=== PATIENT | female | born 1975 | race Two or more races ===

== ENCOUNTER → 2019-04-14 | Outpatient (CLI) | payer OTHER ==
[2016-04-14 06:39] VITALS: BP 128/79
[~2019-04-14] MED LIST: NITR100C62 PO; PHEN-318 PO
--- NOTE | 2019-04-14 08:35 | RAD ---
Indication:Elevated liver function tests. TECHNIQUE: Grayscale, color Doppler and spectral waveform is of the abdomen obtained. COMPARISON:None FINDINGS: Visualized pancreas within normal limits. Pancreatic tail not visualized due to overlying bowel gas. IVC is patent. No aortic aneurysm. Liver measures 15 cm in longest dimension with mildly increased echogenicity. Main portal vein is patent. No gallstones, pericholecystic fluid or gallbladder wall thickening. Right kidney measures 10.5 cm in length without hydronephrosis. Spleen measures 8.5 cm in length and is normal in size. Left kidney measures 11.3 cm in length without hydronephrosis. IMPRESSION: Mild hepatic steatosis. No cholelithiasis. Electronically signed by: Cezar Monge DO (04/14/2019 8:32 AM) [facility]
== END | disposition home or self-care (01) ==
LOC: US 09:00
PROVIDERS: ATTEND Physician Assistant Surgical
DX: K76.0 Fatty (change of) liver, not elsewhere classified (principal)
CPT/HCPCS: 76700

== ENCOUNTER 2020-05-07 01:08 | Inpatient (IN) | payer OTHER ==
[~2020-05-07] VITALS: Ht 157.5 cm; Wt 82.1 kg
--- NOTE | 2020-05-07 01:24 | PHYS DOC ---
Past Medical History Past Medical History: UTI Past Surgical History: Tubal ligation Additional Past Surgical Histo: RT HAND Smoking Status: Current Every Day Smoker Alcohol Use: None Drug Use: None General Adult EDM: Chief Complaint: NEURO SYMPTOMS/DEFICITS HPI: HPI: The history was obtained from the patient. Patient is a 45-year-old female with PMH diabetes who presents with a chief complaint of facial droop and slurred speech. Patient states 1 hour prior to arrival she had acute onset right-sided facial droop and slurred speech. She states she had fallen asleep in recliner woke up and began ambulating to the bathroom. She states while ambulating she noted some right leg heaviness that made it difficult to walk and cause her to fall to the right. She states her noted some slurred speech and right- sided facial droop as well. She states that her speech has improved since symptom onset but she still notes some weakness in her right lower extremity. Denies any falls or trauma. Denies any history of stroke. Denies any headache or vomiting. Denies any drinking tonight. Denies chest pain or shortness of breath. Denies syncope. Denies any acute vision or hearing changes. No other complaints. Review of Systems: Review of Systems: Constitutional: Denies fever or chills. [] Eyes: Denies change in visual acuity. [] HENT: Denies nasal congestion or sore throat. [] Respiratory: Denies cough or shortness of breath. [] Cardiovascular: Denies chest pain or edema. [] GI: Denies abdominal pain, nausea, vomiting, bloody stools or diarrhea. [] : Denies dysuria. [] Musculoskeletal: Denies back pain or joint pain. [] Integument: Denies rash. [] Neurologic: Positive for facial droop, slurred speech Endocrine: Denies polyuria or polydipsia. [] Lymphatic: Denies swollen glands. [] Psychiatric: Denies depression or anxiety. [] Heart Score: Risk Factors: Risk Factors: DM, Current or recent (<one month) smoker, HTN, HLP, family history of CAD, obesity. Risk Scores: Score 0 - 3: 2.5% MACE over next 6 weeks - Discharge Home Score 4 - 6: 20.3% MACE over next 6 weeks - Admit for Clinical Observation Score 7 - 10: 72.7% MACE over next 6 weeks - Early Invasive Strategies Allergies: Allergies: Allergies Coded Allergies Type Severity Reaction Last Updated Verified Penicillins Allergy Intermediate 10/24/14 Yes Physical Exam: PE: Constitutional: Well developed, well nourished, no acute distress, non-toxic appearance. [] HENT: Normocephalic, atraumatic, bilateral external ears normal, oropharynx moist, no oral exudates, nose normal. [] Eyes: PERRLA, EOMI, conjunctiva normal, no discharge. [] Neck: Normal range of motion, no tenderness, supple, no stridor. [] Cardiovascular:Heart rate regular rhythm, no murmur [] Lungs & Thorax: Bilateral breath sounds clear to auscultation [] Abdomen: soft, no tenderness, no masses, no pulsatile masses. [] Skin: Warm, dry, no erythema, no rash. [] Back: No tenderness, no CVA tenderness. [] Extremities: No tenderness, no cyanosis, no clubbing, ROM intact, no edema. [] Neurologic: Alert with intact cognitive function. No aphasia, dysarthria, or neglect. GCS 15. Pupils 3 mm briskly reactive b/l. No APD present. Cranial nerves 2-12 grossly intact; no facial asymmetry present, tongue midline, zen ulder shrugging strength intact. Strength 5/5 and symmetric throughout. Light touch sensation intact throughout. Cerebellar testing appropriate without evidence of dysdiadochokinesia. DTR's 2+ in all 4 extremities. Slight pronator drift noted to the left upper extremity. Psychologic: Affect normal, judgement normal, mood normal. [] Current Patient Data: Labs: Laboratory Tests Test 05/07/20 01:14 Glucose (Fingerstick) 198 mg/dL (70-99) H Vital Signs: Laboratory Tests Test 05/07/20 01:14 05/07/20 01:25 05/07/20 02:20 05/07/20 02:27 Glucose (Fingerstick) 198 mg/dL White Blood Count 8.7 x10^3/uL Red Blood Count 4.56 x10^6/uL Hemoglobin 14.0 g/dL Hematocrit 39.9 % Mean Corpuscular Volume 88 fL Mean Corpuscular Hemoglobin 31 pg Mean Corpuscular Hemoglobin Concent 35 g/dL Red Cell Distribution Width 13.1 % Platelet Count 361 x10^3/uL Neutrophils (%) (Auto) 54 % Lymphocytes (%) (Auto) 36 % Monocytes (%) (Auto) 8 % Eosinophils (%) (Auto) 1 % Basophils (%) (Auto) 1 % Neutrophils # (Auto) 4.7 x10^3/uL Lymphocytes # (Auto) 3.1 x10^3/uL Monocytes # (Auto) 0.7 x10^3/uL Eosinophils # (Auto) 0.1 x10^3/uL Basophils # (Auto) 0.1 x10^3/uL Sodium Level 137 mmol/L Potassium Level 3.6 mmol/L Chloride Level 103 mmol/L Carbon Dioxide Level 26 mmol/L Anion Gap 8 Blood Urea Nitrogen 12 mg/dL Creatinine 1.0 mg/dL Estimated GFR (Cockcroft-Gault) 60.0 Glucose Level 208 mg/dL Calcium Level 8.5 mg/dL Magnesium Level 2.1 mg/dL Troponin I Quantitative < 0.017 ng/mL Ethyl Alcohol Level < 10 mg/dL Urine Collection Type Unknown Urine Color Yellow Urine Clarity Clear Urine pH 5.5 Urine Specific [place] 1.025 Urine Protein Negative mg/dL Urine Glucose (UA) >=1000 mg/dL Urine Ketones (Stick) Negative mg/dL Urine Blood Negative Urine Nitrite Negative Urine Bilirubin Negative Urine Urobilinogen Dipstick 1.0 mg/dL Urine Leukocyte Esterase Negative Urine RBC Occ /HPF Urine WBC 1-4 /HPF Urine Squamous Epithelial Cells Mod /LPF Urine Bacteria Many /HPF Urine Mucus Mod /LPF Urine Opiates Screen Neg Urine Methadone Screen Neg Urine Barbiturates Neg Urine Phencyclidine Screen Neg Urine Amphetamine/Methamphetamine Neg Urine Benzodiazepines Screen Neg Urine Cocaine Screen Neg Urine Cannabinoids Screen Neg Urine Ethyl Alcohol Neg Bedside Urine HCG, Qualitative Hcg negative Current Medications Medications (Trade) Dose Ordered Sig/Villa Route PRN Reason Start Time Stop Time Status Last Admin Dose Admin Aspirin (Aspirin Chewable) 324 mg 1X ONCE PO 05/07/20 02:15 05/07/20 02:16 DC 05/07/20 02:13 EKG: EKG: EKG consistent with normal sinus rhythm. Ventricular rate of 74 bpm. Left axis noted. Low voltage QRS complex noted in the inferior leads and lateral precordial leads. No acute ischemic changes noted. [] Radiology/Procedures: Radiology/Procedures: [][facility] [address] [place] [address] IMAGING REPORT Signed PATIENT: ARVIND ENGLAND ACCOUNT: [id number] : 1975 LOCATION: ER AGE: 45 SEX: F EXAM STATUS: REG ER ORD. PHYSICIAN: JORDAN MCFARLANE DO REASON: right facial droop, LUE drift PROCEDURE: CT CODE STROKE HEAD WO PQRS Compliance Statement: One or more of the following individualized dose reduction techniques were utilized for this examination: 1. Automated exposure control 2. Adjustment of the mA and/or kV according to patient size 3. Use of iterative reconstruction technique CT HEAD WITHOUT CONTRAST History: Reason: right facial droop, LUE drift Comparison: None. Procedure: Axial images are obtained of the head from the skull base through the vertex without IV contrast. Findings: The ventricles and sulci are normal for the patient's age. No mass-effect, midline shift, hemorrhage, extra-axial fluid collection, or obvious acute infarction is identified. Basilar cisterns are patent. Bone windows demonstrate no acute calvarial abnormality. The visualized paranasal sinuses are clear. Mastoid air cells are well aerated. IMPRESSION: No acute intracranial abnormality. FOR INTERNAL CODING PURPOSES Critical result: Findings discussed with JORDAN MCFARLANE at 05/07/2020 1:31 AM. RESULT CODE: (C) Electronically signed by: Renzo Kaminski MD (05/07/2020 1:31 AM) [facility] DICTATED and SIGNED BY: RENZO KAMINSKI MD DATE: 05/07/20 013 Course & Med Decision Making: Course & Med Decision Making Pertinent Labs and Imaging studies reviewed. (See chart for details) [] Patient is a 45-year-old female who presents with a chief complaint of slurred speech and right-sided facial droop. Upon arrival patient did not have any appreciable facial asymmetry or changes in her voice. She did have very slight left upper extremity drift on examination otherwise normal neuro exam. Stroke alert was called given symptoms started 1 hour prior to arrival. CT head negative. Patient's initial NIH 1. Not a candidate for TPA in my opinion given her low NIH score. She is essentially asymptomatic. Basic labs were obtained and were grossly unremarkable. EKG unremarkable. Given the patient's reported neurologic symptoms at home I do feel she would benefit from hospit alization and further work-up. Patient is agreeable to this. Aspirin given in the ED. Dragon Disclaimer: Dragon Disclaimer: This electronic medical record was generated, in whole or in part, using a voice recognition dictation system. Departure Departure Impression: Primary Impression: Facial droop Additional Impressions: Slurred speech Diabetes Qualified Codes: E13.69 - Other specified diabetes mellitus with other specified complication Disposition: ADMITTED INPATIENT Condition: STABLE Referrals: MUSTAPHA CARDENAS MD (PCP) Justicifation of Admission Dx: Justifications for Admission: Justification of Admission Dx: Yes Stroke - Ischemic: Stroke-Ischemic NIHSS Stroke Scale NIH Stroke Scale: NIH Stroke Scale Response (Comments) Value Level of Consciousness: 0 Alert/Responsive 0 LOC Questions: 0 Answers both correctly 0 LOC Commands: 0 Performs both tasks 0 Best Gaze: 0 Normal 0 Visual: 0 No visual loss 0 Facial Palsy: 0 Normal, symmetrical 0 Motor - Left Arm 1 Drifts, but can hold 1 Motor - Right Arm 0 No drift 0 Motor - Left Leg 0 No drift 0 Motor: Right Leg 0 No drift 0 Limb Ataxia: 0 Absent 0 Sensory: 0 No loss 0 Best Language: 0 Normal 0 Dysathria: 0 Normal 0 Extinction and Inattention: 0 Normal 0 Total 1 JORDAN MCFARLANE DO May 07, 2020 01:24
--- NOTE | 2020-05-07 01:34 | RAD ---
RS Compliance Statement: One or more of the following individualized dose reduction techniques were utilized for this examination: 1. Automated exposure control 2. Adjustment of the mA and/or kV according to patient size 3. Use of iterative reconstruction technique CT HEAD WITHOUT CONTRAST History: Reason: right facial droop, LUE drift Comparison: None. Procedure: Axial images are obtained of the head from the skull base through the vertex without IV contrast. Findings: The ventricles and sulci are normal for the patient's age. No mass-effect, midline shift, hemorrhage, extra-axial fluid collection, or obvious acute infarction is identified. Basilar cisterns are patent. Bone windows demonstrate no acute calvarial abnormality. The visualized paranasal sinuses are clear. Mastoid air cells are well aerated. IMPRESSION: No acute intracranial abnormality. FOR INTERNAL CODING PURPOSES Critical result: Findings discussed with JORDAN MCFARLANE at 05/07/2020 1:31 AM. RESULT CODE: (C) Electronically signed by: Renzo Kaminski MD (05/07/2020 1:31 AM) [facility]
[2020-05-07 01:41] LABS: BASO # 0.1 x10^3/uL (0.0-0.2); BASO % 1 % (0-3); EOS # 0.1 x10^3/uL (0.0-0.7); EOS % 1 % (0-3); HEMATOCRIT 39.9 % (36.0-47.0); LYMPH # 3.1 x10^3/uL (1.0-4.8); LYMPH % 36 % (24-48); MEAN CORPUSCULAR HEMOGLOBIN 31 pg (25-35); MEAN CORPUSCULAR HGB CONC 35 g/dL (31-37); MEAN CORPUSCULAR VOLUME 88 fL (79-100); MONO # 0.7 x10^3/uL (0.0-1.1); MONO % 8 % (0-9); NEUT # 4.7 x10^3/uL (1.8-7.7); NEUT % 54 % (31-73); PLATELET COUNT 361 x10^3/uL (140-400); RED BLOOD COUNT 4.56 x10^6/uL (3.50-5.40); RED CELL DISTRIBUTION WIDTH 13.1 % (11.5-14.5); WHITE BLOOD COUNT 8.7 x10^3/uL (4.0-11.0)
[2020-05-07 01:50] LABS: CALCIUM 8.5 mg/dL (8.5-10.1); POTASSIUM 3.6 mmol/L (3.5-5.1)
[2020-05-07 01:51] LABS: MAGNESIUM 2.1 mg/dL (1.8-2.4)
--- NOTE | 2020-05-07 01:55 | RAD ---
CHEST AP ONLY Clinical Indication: weakness Comparison: None. Findings: The cardiomediastinal silhouette is normal. Lungs are clear. There is no pneumothorax. No pleural effusion is appreciated. No acute bone abnormality. IMPRESSION: No acute cardiopulmonary process. Electronically signed by: Renzo Kaminski MD (05/07/2020 1:52 AM) [facility]
[2020-05-07] MEDS ORDERED: ASPIRIN CHEWABLE 81 MG TABLET. PO ONE (02:15)
[2020-05-07 02:31] LABS: BILIRUBIN,URINE NEGATIVE (NEG); CLARITY,URINE CLEAR; COLOR,URINE YELLOW; NITRITE,URINE NEGATIVE (NEG); PH,URINE 5.5 (<5.0-8.0); PROTEIN,URINE NEGATIVE (NEG-TRACE)
[2020-05-07 02:37] LABS: BARBITURATES NEG (NEG); BENZODIAZEPINES NEG (NEG); CANNABINOIDS NEG (NEG); COCAINE NEG (NEG); METHADONE NEG (NEG); OPIATES NEG (NEG); PHENCYCLIDINE NEG (NEG)
[2020-05-07 02:39] LABS: AMPHETAMINE/METHAMPHETAMINE NEG (NEG)
[2020-05-07 02:40] LABS: BACTERIA,URINE MANY /HPF (0-FEW); RBC,URINE OCC /HPF (0-2); SQUAMOUS EPITHELIAL CELL,UR MOD /LPF
[2020-05-07 04:16] VITALS: BP 119/60
--- NOTE | 2020-05-07 04:16 | NUR ---
Pt. arrived around 0400 from ED via bed w/ R-facial droop to r/o TIA vs. CVA. She is A/O x4 and will make her needs known. NIH score was 1 w/ ED nurse.
[2020-05-07] MEDS ORDERED: ALPR0.5T PO (04:35)
[2020-05-07] MEDS ORDERED: SEMA0.25 SQ (04:35)
[2020-05-07] MEDS ORDERED: DULO60CA6 PO (04:35)
[2020-05-07] MEDS ORDERED: INSU100I32 SQ (04:35)
--- NOTE | 2020-05-07 07:06 | NUR ---
Just notified answering service about consult
--- NOTE | 2020-05-07 07:27 | EKG ---
[facility] [address] [place] [address] Test Date: 2020-05-07 Test Time: 01:36:54 Pat Name: ARVIND ENGLAND Department: Room: Gender: F Claim Examiner: : 1975 Requested By: JORDAN MCFARLANE Order Number: [id number] Reading MD: Measurements Intervals [place] Rate: 74 P: 31 WI: 158 QRS: -7 QRSD: 70 T: 54 QT: 374 QTc: 416 Interpretive Statements SINUS RHYTHM LEFTWARD AXIS OTHERWISE NORMAL ECG RI6.02 No previous ECG available for comparison
[2020-05-07 07:30] VITALS: BP 108/60
--- NOTE | 2020-05-07 08:40 | PDOC1 ---
History and Physical Date of Admission Date of Admission DATE: 05/07/20 TIME: 08:40 Identification/Chief Complaint Chief Complaint SEEN IN ER WITH TIA, CVA SYMPTOMS 45-year-old female with PMH diabetes who presents with a chief complaint of facial droop and slurred speech. Patient states 1 hour prior to arrival she had acute onset right-sided facial droop and slurred speech. She states she had fallen asleep in recliner woke up and began ambulating to the bathroom. while ambulating she noted some right leg heaviness that made it difficult to walk and cause her to fall to the right. She states her noted some slurred speech and right-sided facial droop as well. speech has improved since symptom onset but she still notes some weakness in her right lower extremity. // Denies any history of stroke. Denies any headache or vomiting. Denies any drinking tonight. Denies chest pain or shortness of breath. Denies syncope. Denies any acute vision or hearing changes. Past Medical History Psych: No pertinent hx Musculoskeletal: Weakness Renal/: No pertinent hx Endocrine: Diabetes Family History Family History: Hypertension Social History Smoke: <1 pack per day ALCOHOL: occassional Drugs: None Current Problem List Problem List Problems Medical Problems: (1) Diabetes Status: Acute (2) Facial droop Status: Acute (3) Slurred speech Status: Acute Current Medications Current Medications Current Medications Aspirin (Aspirin Chewable) 324 mg 1X ONCE PO Last administered on 05/07/20at 02:13; Start 05/07/20 at 02:15; Stop 05/07/20 at 02:16; Status DC Active Scripts Active Reported Xanax (Alprazolam) 0.5 Mg Tablet 1 Tab PO HS Cymbalta (Duloxetine Hcl) 60 Mg Capsule.dr 1 Cap PO DAILY Ozempic (Semaglutide) 0.25 Mg/0.2 Ml Pen.injctr 0.25 Mg SQ WEEKLY Basaglar Kwikpen U-100 (Insulin Glargine,Hum.rec.anlog) 100 Unit/1 Ml Insuln.pen 30 Unit SQ HS Allergies Allergies: Coded Allergies: Penicillins (Verified Allergy, Intermediate, 10/24/14) ROS Review of System Constitutional: Denies fever or chills. [] Eyes: Denies change in visual acuity. [] HENT: Denies nasal congestion or sore throat. [] Respiratory: Denies cough or shortness of breath. [] Cardiovascular: Denies chest pain or edema. [] GI: Denies abdominal pain, nausea, vomiting, bloody stools or diarrhea. [] : Denies dysuria. [] Musculoskeletal: Denies back pain or joint pain. [] Integument: Denies rash. [] Neurologic: Positive for facial droop, slurred speech Endocrine: Denies polyuria or polydipsia. [] Lymphatic: Denies swollen glands. [] Psychiatric: Denies depression or anxiety. [] 14 PT ros otherwise neg General: No: Chills, Night Sweats, Fatigue, Malaise, Appetite, Other PSYCHOLOGICAL ROS: No: Anxiety, Behavioral Disorder, Concentration difficultie, Decreased libido, Depression, Disorientation, Hallucinations, Hostility, Irritablity, Memory difficulties, Mood Swings, Obsessive thoughts, Physical abuse, Sexual abuse, Sleep disturbances, Suicidal ideation, Other Eyes: No Blurry vision, No Decreased vision, No Double vision, No Dry eyes, No Excessive tearing, No Eye Pain, No Itchy Eyes, No Loss of vision, No Photophobia, No Scotomata, No Uses contacts, No Uses glasses, No Other Respiratory: No: Cough, Hemoptysis, Orthopnea, Pleuritic Pain, Shortness of breath, SOB with excertion, Sputum Changes, Stridor, Tachypnea, Wheezing, Other Cardiovascular: No Chest Pain, No Palpitations, No Orthopnea, No Paroxysmal Noc . Dyspnea, No Edema, No Lt Headedness, No Other Gastrointestinal: No Nausea, No Vomiting, No Abdominal Pain, No Diarrhea, No Constipation, No Melena, No Hematochezia, No Other Musculoskeletal: Yes Gait Disturbance Neurological: Yes Dizziness, Yes Gait Disturbance Skin: No Dry Skin, No Eczema, No Hair Changes, No Lumps, No Mole Changes, No Mottling, No Nail Changes, No Pruritus, No Rash, No Skin Lesion Changes, No Other, No Acne Physical Exam Physical Exam Constitutional: Well developed, well nourished, no acute distress, non-toxic appearance. [] HENT: Normocephalic, atraumatic, bilateral external ears normal, oropharynx moist, no oral exudates, nose normal. [] Eyes: PERRLA, EOMI, conjunctiva normal, no discharge. [] Neck: Normal range of motion, no tenderness, supple, no stridor. [] Cardiovascular:Heart rate regular rhythm, no murmur [] Lungs & Thorax: Bilateral breath sounds clear to auscultation [] Abdomen: soft, no tenderness, no masses, no pulsatile masses. [] Skin: Warm, dry, no erythema, no rash. [] Back: No tenderness, no CVA tenderness. [] Extremities: No tenderness, no cyanosis, no clubbing, ROM intact, no edema. [] Neurologic: Alert with intact cognitive function. No aphasia, dysarthria, or neglect. GCS 15. Pupils 3 mm briskly reactive b/l. No APD present. Cranial nerves 2-12 grossly intact; no facial asymmetry present, tongue midline, shoulder shrugging strength intact. Strength 5/5 and symmetric throughout. Light touch sensation intact throughout. Cerebellar testing appropriate without evidence of dysdiadochokinesia. DTR's 2+ in all 4 extremities. no pronator drift noted to the left upper extremity. Psychologic: Affect normal, judgement normal, mood normal. [] General: Alert, Oriented X3, Cooperative HEENT: Atraumatic, PERRLA, EOMI, Mucous membr. moist/pink Lungs: Clear to auscultation, Normal air movement Heart: S1S2, RRR, no thrills Breasts: Not examined Abdomen: Normal bowel sounds, Soft, No tenderness, No hepatosplenomegaly Rectal Exam: not examined PELVIC: Examination not indicated Extremities: No cyanosis, No edema, Normal pulses Skin: No significant lesion Neuro: Normal speech, Strength at 5/5 X4 ext, Sensation intact, Cranial nerves 3-12 NL Psych/Mental Status: Mental status NL, Mood NL Vitals Vitals Vital Signs Date Time Temp Pulse Resp B/P (MAP) Pulse Ox O2 Delivery O2 Flow Rate FiO2 05/07/20 05:20 Room Air 05/07/20 04:16 98.4 69 17 119/60 (79) 99 98.4 Labs Labs Laboratory Tests Test 05/07/20 01:14 05/07/20 01:25 05/07/20 02:20 05/07/20 02:27 Glucose (Fingerstick) 198 mg/dL (70-99) White Blood Count 8.7 x10^3/uL (4.0-11.0) Red Blood Count 4.56 x10^6/uL (3.50-5.40) Hemoglobin 14.0 g/dL (12.0-15.5) Hematocrit 39.9 % (36.0-47.0) Mean Corpuscular Volume 88 fL (79-100) Mean Corpuscular Hemoglobin 31 pg (25-35) Mean Corpuscular Hemoglobin Concent 35 g/dL (31-37) Red Cell Distribution Width 13.1 % (11.5-14.5) Platelet Count 361 x10^3/uL (140-400) Neutrophils (%) (Auto) 54 % (31-73) Lymphocytes (%) (Auto) 36 % (24-48) Monocytes (%) (Auto) 8 % (0-9) Eosinophils (%) (Auto) 1 % (0-3) Basophils (%) (Auto) 1 % (0-3) Neutrophils # (Auto) 4.7 x10^3/uL (1.8-7.7) Lymphocytes # (Auto) 3.1 x10^3/uL (1.0-4.8) Monocytes # (Auto) 0.7 x10^3/uL (0.0-1.1) Eosinophils # (Auto) 0.1 x10^3/uL (0.0-0.7) Basophils # (Auto) 0.1 x10^3/uL (0.0-0.2) Sodium Level 137 mmol/L (136-145) Potassium Level 3.6 mmol/L (3.5-5.1) Chloride Level 103 mmol/L (98-107) Carbon Dioxide Level 26 mmol/L (21-32) Anion Gap 8 (6-14) Blood Urea Nitrogen 12 mg/dL (7-20) Creatinine 1.0 mg/dL (0.6-1.0) Estimated GFR (Cockcroft-Gault) 60.0 Glucose Level 208 mg/dL (70-99) Calcium Level 8.5 mg/dL (8.5-10.1) Magnesium Level 2.1 mg/dL (1.8-2.4) Troponin I Quantitative < 0.017 ng/mL (0.000-0.055) Ethyl Alcohol Level < 10 mg/dL (0-10) Urine Collection Type Unknown Urine Color Yellow Urine Clarity Clear Urine pH 5.5 (<5.0-8.0) Urine Specific [place] 1.025 (1.000-1.030) Urine Protein Negative mg/dL (NEG-TRACE) Urine Glucose (UA) >=1000 mg/dL (NEG) Urine Ketones (Stick) Negative mg/dL (NEG) Urine Blood Negative (NEG) Urine Nitrite Negative (NEG) Urine Bilirubin Negative (NEG) Urine Urobilinogen Dipstick 1.0 mg/dL (0.2 mg/dL) Urine Leukocyte Esterase Negative (NEG) Urine RBC Occ /HPF (0-2) Urine WBC 1-4 /HPF (0-4) Urine Squamous Epithelial Cells Mod /LPF Urine Bacteria Many /HPF (0-FEW) Urine Mucus Mod /LPF Urine Opiates Screen Neg (NEG) Urine Methadone Screen Neg (NEG) Urine Barbiturates Neg (NEG) Urine Phencyclidine Screen Neg (NEG) Urine Amphetamine/Methamphetamine Neg (NEG) Urine Benzodiazepines Screen Neg (NEG) Urine Cocaine Screen Neg (NEG) Urine Cannabinoids Screen Neg (NEG) Urine Ethyl Alcohol Neg (NEG) Bedside Urine HCG, Qualitative Hcg negative (Negative) Test 05/07/20 08:10 Glucose (Fingerstick) 169 mg/dL (70-99) Laboratory Tests Test 05/07/20 01:14 05/07/20 01:25 05/07/20 02:20 05/07/20 02:27 Glucose (Fingerstick) 198 mg/dL (70-99) White Blood Count 8.7 x10^3/uL (4.0-11.0) Red Blood Count 4.56 x10^6/uL (3.50-5.40) Hemoglobin 14.0 g/dL (12.0-15.5) Hematocrit 39.9 % (36.0-47.0) Mean Corpuscular Volume 88 fL (79-100) Mean Corpuscular Hemoglobin 31 pg (25-35) Mean Corpuscular Hemoglobin Concent 35 g/dL (31-37) Red Cell Distribution Width 13.1 % (11.5-14.5) Platelet Count 361 x10^3/uL (140-400) Neutrophils (%) (Auto) 54 % (31-73) Lymphocytes (%) (Auto) 36 % (24-48) Monocytes (%) (Auto) 8 % (0-9) Eosinophils (%) (Auto) 1 % (0-3) Basophils (%) (Auto) 1 % (0-3) Neutrophils # (Auto) 4.7 x10^3/uL (1.8-7.7) Lymphocytes # (Auto) 3.1 x10^3/uL (1.0-4.8) Monocytes # (Auto) 0.7 x10^3/uL (0.0-1.1) Eosinophils # (Auto) 0.1 x10^3/uL (0.0-0.7) Basophils # (Auto) 0.1 x10^3/uL (0.0-0.2) Sodium Level 137 mmol/L (136-145) Potassium Level 3.6 mmol/L (3.5-5.1) Chloride Level 103 mmol/L (98-107) Carbon Dioxide Level 26 mmol/L (21-32) Anion Gap 8 (6-14) Blood Urea Nitrogen 12 mg/dL (7-20) Creatinine 1.0 mg/dL (0.6-1.0) Estimated GFR (Cockcroft-Gault) 60.0 Glucose Level 208 mg/dL (70-99) Calcium Level 8.5 mg/dL (8.5-10.1) Magnesium Level 2.1 mg/dL (1.8-2.4) Troponin I Quantitative < 0.017 ng/mL (0.000-0.055) Ethyl Alcohol Level < 10 mg/dL (0-10) Urine Collection Type Unknown Urine Color Yellow Urine Clarity Clear Urine pH 5.5 (<5.0-8.0) Urine Specific [place] 1.025 (1.000-1.030) Urine Protein Negative mg/dL (NEG-TRACE) Urine Glucose (UA) >=1000 mg/dL (NEG) Urine Ketones (Stick) Negative mg/dL (NEG) Urine Blood Negative (NEG) Urine Nitrite Negative (NEG) Urine Bilirubin Negative (NEG) Urine Urobilinogen Dipstick 1.0 mg/dL (0.2 mg/dL) Urine Leukocyte Esterase Negative (NEG) Urine RBC Occ /HPF (0-2) Urine WBC 1-4 /HPF (0-4) Urine Squamous Epithelial Cells Mod /LPF Urine Bacteria Many /HPF (0-FEW) Urine Mucus Mod /LPF Urine Opiates Screen Neg (NEG) Urine Methadone Screen Neg (NEG) Urine Barbiturates Neg (NEG) Urine Phencyclidine Screen Neg (NEG) Urine Amphetamine/Methamphetamine Neg (NEG) Urine Benzodiazepines Screen Neg (NEG) Urine Cocaine Screen Neg (NEG) Urine Cannabinoids Screen Neg (NEG) Urine Ethyl Alcohol Neg (NEG) Bedside Urine HCG, Qualitative Hcg negative (Negative) Test 05/07/20 08:10 Glucose (Fingerstick) 169 mg/dL (70-99) VTE Prophylaxis Ordered VTE Prophylaxis Devices: No VTE Pharmacological Prophylaxi: Yes Assessment/Plan Assessment/Plan Impression: Facial droop, resolved , POSSIBLE TIA right leg paresthesia, resolved Slurred speech, RESOLVED Diabetes MORBID OBESITY TOBACCO ABUSE DISORDER plan ADMITTED NEUROLOGY CONSULT NEURO CHECKS Q 4 HRS MRI HEAD TELE ACCUCHECKS pt/ot/ st DVT PROPHYLAXIS HOME MEDS NEED FOR SMOKING CESSATION, reinforced D/W DR GLYNN Justifications for Admission Other Justification JOE FRENCH MD May 07, 2020 08:40
[2020-05-07] MEDS ORDERED: ASPIRIN RECTAL 300 MG SUPP. PR PRN (09:00)
[2020-05-07] MEDS ORDERED: ACETAMINOPHEN 325 MG TABLET. PO PRN ×2 (09:00→10:30)
[2020-05-07] MEDS ORDERED: ACETAMINOPHEN 650 MG SUPP.RECT. PR PRN (09:00)
[2020-05-07] MEDS ORDERED: IOHEXOL 300 MG/ML 100ML VIAL. IV ONE (09:15)
[2020-05-07] MEDS ORDERED: IV NORMAL SALINE 1000ML BAG 1,000 ML IV SCH (10:28)
[2020-05-07] MEDS ORDERED: 0.9 % SODIUM CHLORIDE 10 ML DISP.SYRIN. IV PRN (10:30)
[2020-05-07] MEDS ORDERED: guaiFENesin ORAL 200 MG/10 ML LIQUID. PO PRN (10:30)
[2020-05-07] MEDS ORDERED: LORazepam 0.5 MG TABLET PO PRN (10:30)
[2020-05-07] MEDS ORDERED: MAG HYDROX/ALUMINUM HYD/SIMETH 30 ML ORAL.SUSP PO PRN (10:30)
[2020-05-07] MEDS ORDERED: SODIUM PHOSPHATES 19/7GM 133 ML ENEMA. PR PRN (10:30)
[2020-05-07] MEDS ORDERED: DOCUSATE SODIUM 100 MG CAPSULE. PO PRN (10:30)
[2020-05-07] MEDS ORDERED: cloNIDine HCL 0.1 MG TABLET PO PRN (10:30)
--- NOTE | 2020-05-07 10:43 | PDOC2 ---
NEUROLOGY CONSULT Date of Service DOS: DATE: 05/07/20 TIME: 10:35 Reason for Consult Reason for Consult: Stroke symptoms Referring Physician Referring Physician: Dr. Huerta PCP: Dr. Martin Source Source: Caregiver (), Chart review, Patient History of Present Illness History of Present Illness The patient is a 45-year-old right-handed female who is watching the [employer] game last night. She fell asleep. When she woke up, she noticed that her right face was drooping and she had some dysarthria. She noticed some clumsiness of the right leg when she tried to go to the restroom. In the emergency department the patient had an NIH score of one and it was felt she was not a candidate for alteplase. She has no history of stroke, seizure, head injury, or migraines. There was no pain involved last night. She feels fine this morning. She has been told that her cholesterol is elevated. I accessed her outpatient chart with her permission, I see that hemoglobin A-1 C was 7.6 on 03/26/20, on 04/26/19, total cholesterol was 199, LDL 120, triglycerides 190. Past Medical History CENTRAL NERVOUS SYSTEM: Other ( carpal tunnel, restless legs) Hepatobiliary: Other ( fatty liver) Psych: Anxiety, Depression, Other ( insomnia) Endocrine: Diabetes Past Surgical History Past Surgical History: Tubal Ligation, Other ( right carpal tunnel release) Family History Family History: DM, Hypertension Social History Social History , 5 cigarettes a day, rare alcohol, airline pilot/first officer Current Medications Current Medications Current Medications Aspirin (Aspirin Chewable) 324 mg 1X ONCE PO Last administered on 05/07/20at 02:13; Start 05/07/20 at 02:15; Stop 05/07/20 at 02:16; Status DC Acetaminophen (Tylenol) 650 mg PRN Q6HRS PRN PO TEMP > 100.4F; Start 05/07/20 at 09:00 Acetaminophen (Tylenol Supp) 650 mg PRN Q4HRS PRN MS TEMP > 100.4F; Start 05/07/20 at 09:00 Aspirin (Ecotrin) 325 mg DAILYWBKFT PO ; Start 05/08/20 at 08:00 Aspirin (Aspirin Rectal Supp) 300 mg PRN DAILY PRN MS IF UNABLE TO TAKE PO; Start 05/07/20 at 09:00 Iohexol (Omnipaque 300 Mg/ml) 75 ml 1X ONCE IV ; Start 05/07/20 at 09:15; Stop 05/07/20 at 09:18; Status DC Sodium Chloride (Normal Saline Flush) 3 ml QSHIFT PRN IV AFTER MEDS AND BLOOD DRAWS; Start 05/07/20 at 10:30; Status UNV Sodium Chloride 1,000 ml @ 100 mls/hr Q10H IV ; Start 05/07/20 at 10:28; Status UNV Acetaminophen (Tylenol) 650 mg PRN Q4HRS PRN PO TEMP OVER 100.4F OR MILD PAIN; Start 05/07/20 at 10:30; Status UNV Al Hydroxide/Mg Hydroxide (Mylanta Plus Xs) 30 ml PRN DAILY PRN PO HEARTBURN / GAS; Start 05/07/20 at 10:30; Status UNV Clonidine HCl (Catapres) 0.1 mg PRN Q6HRS PRN PO SBP>160 OR DBP>90; Start 05/07/20 at 10:30; Status UNV Sodium Monofluorophosphate (Fleet Adult) 133 ml PRN DAILY PRN MS CONSTIPATION; Start 05/07/20 at 10:30; Status UNV Docusate Sodium (Colace) 100 mg PRN BID PRN PO HARD STOOLS; Start 05/07/20 at 10:30; Status UNV Albuterol/ Ipratropium (Duoneb) 3 ml Q4H NEB ; Start 05/07/20 at 10:30; Status UNV Guaifenesin (Robitussin) 200 mg PRN Q4HRS PRN PO COUGH; Start 05/07/20 at 10:30; Status UNV Lorazepam (Ativan) 0.5 mg PRN Q4HRS PRN PO ANXIETY / AGITATION; Start 05/07/20 at 10:30; Status UNV Enoxaparin Sodium (Lovenox 40mg Syringe) 40 mg Q24H SQ ; Start 05/07/20 at 10:30; Status UNV Alprazolam (Xanax) 0.5 mg HS PO ; Start 05/07/20 at 21:00; Status UNV Non-Formulary Medication (Duloxetine Hcl (Cymbalta)) 1 cap DAILY PO ; Start 05/08/20 at 09:00; Status UNV Non-Formulary Medication (Insulin Glargine,Hum.rec.anlog (Basaglar Kwikpen U- 100)) 30 unit HS SQ ; Start 05/07/20 at 21:00; Status UNV Non-Formulary Medication (Semaglutide (Ozempic)) 0.25 mg WEEKLY SQ ; Start 05/14/20 at 09:00; Status UNV Active Scripts Active Reported Xanax (Alprazolam) 0.5 Mg Tablet 1 Tab PO HS Cymbalta (Duloxetine Hcl) 60 Mg Capsule.dr 1 Cap PO DAILY Ozempic (Semaglutide) 0.25 Mg/0.2 Ml Pen.injctr 0.25 Mg SQ WEEKLY Basaglar Kwikpen U-100 (Insulin Glargine,Hum.rec.anlog) 100 Unit/1 Ml Insuln.pen 30 Unit SQ HS Allergies Allergies: Coded Allergies: Penicillins (Verified Allergy, Intermediate, 10/24/14) ROS Review of System Negative for fever, chills, weight loss, shortness of breath, chest pain, ind igestion, hematochezia, melena, and dysuria. Full 14-point review of systems is negative. Physical Exam Physical Examination General: Well-developed, well-nourished white female in no acute distress HEENT: Normocephalic andatraumatic. Temporal arteriespulsatile and nontender. Neck: Supple without bruit, no meningismus Musculoskeletal: Stability:see neurologic. Gait exam:see neurologic. Tone:see neurologic.Strength:see neurologic. Neurological: Mental Status:intact, orientation, memory, attention span/concentration, language, fund of knowledge normal. Cranial Nerves:Pupils equal and reactive to light, extraocular movements areintact, visual vick are full to confrontation. Facial sensation is normal. There is no facial asymmetry. Vestibulo-ocular reflex is intact. Palate elevates and tongue protrudes in midline. All other cranial related problems are negative except as mentioned before.Reflexes:2+ and symmetric with flexor plantar responses. Motor:5/5 strength with normal tone and bulk. Coordination:Finger-nose finger and fnrl-vn-sgat testing are normal. Rapid alternating movements and fine finger movements are intact. Gait:Normal, including tandem. Sensory:Normal pinprick, vibration, light touch, proprioception. Vitals VITALS Vital Signs Date Time Temp Pulse Resp B/P (MAP) Pulse Ox O2 Delivery O2 Flow Rate FiO2 05/07/20 07:50 Room Air 05/07/20 07:30 97.9 69 16 108/60 (76) 99 97.9 Labs Labs Laboratory Tests Test 05/07/20 01:14 05/07/20 01:25 05/07/20 02:20 05/07/20 02:27 Glucose (Fingerstick) 198 mg/dL (70-99) White Blood Count 8.7 x10^3/uL (4.0-11.0) Red Blood Count 4.56 x10^6/uL (3.50-5.40) Hemoglobin 14.0 g/dL (12.0-15.5) Hematocrit 39.9 % (36.0-47.0) Mean Corpuscular Volume 88 fL (79-100) Mean Corpuscular Hemoglobin 31 pg (25-35) Mean Corpuscular Hemoglobin Concent 35 g/dL (31-37) Red Cell Distribution Width 13.1 % (11.5-14.5) Platelet Count 361 x10^3/uL (140-400) Neutrophils (%) (Auto) 54 % (31-73) Lymphocytes (%) (Auto) 36 % (24-48) Monocytes (%) (Auto) 8 % (0-9) Eosinophils (%) (Auto) 1 % (0-3) Basophils (%) (Auto) 1 % (0-3) Neutrophils # (Auto) 4.7 x10^3/uL (1.8-7.7) Lymphocytes # (Auto) 3.1 x10^3/uL (1.0-4.8) Monocytes # (Auto) 0.7 x10^3/uL (0.0-1.1) Eosinophils # (Auto) 0.1 x10^3/uL (0.0-0.7) Basophils # (Auto) 0.1 x10^3/uL (0.0-0.2) Sodium Level 137 mmol/L (136-145) Potassium Level 3.6 mmol/L (3.5-5.1) Chloride Level 103 mmol/L (98-107) Carbon Dioxide Level 26 mmol/L (21-32) Anion Gap 8 (6-14) Blood Urea Nitrogen 12 mg/dL (7-20) Creatinine 1.0 mg/dL (0.6-1.0) Estimated GFR (Cockcroft-Gault) 60.0 Glucose Level 208 mg/dL (70-99) Calcium Level 8.5 mg/dL (8.5-10.1) Magnesium Level 2.1 mg/dL (1.8-2.4) Troponin I Quantitative < 0.017 ng/mL (0.000-0.055) Ethyl Alcohol Level < 10 mg/dL (0-10) Urine Collection Type Unknown Urine Color Yellow Urine Clarity Clear Urine pH 5.5 (<5.0-8.0) Urine Specific Kershaw 1.025 (1.000-1.030) Urine Protein Negative mg/dL (NEG-TRACE) Urine Glucose (UA) >=1000 mg/dL (NEG) Urine Ketones (Stick) Negative mg/dL (NEG) Urine Blood Negative (NEG) Urine Nitrite Negative (NEG) Urine Bilirubin Negative (NEG) Urine Urobilinogen Dipstick 1.0 mg/dL (0.2 mg/dL) Urine Leukocyte Esterase Negative (NEG) Urine RBC Occ /HPF (0-2) Urine WBC 1-4 /HPF (0-4) Urine Squamous Epithelial Cells Mod /LPF Urine Bacteria Many /HPF (0-FEW) Urine Mucus Mod /LPF Urine Opiates Screen Neg (NEG) Urine Methadone Screen Neg (NEG) Urine Barbiturates Neg (NEG) Urine Phencyclidine Screen Neg (NEG) Urine Amphetamine/Methamphetamine Neg (NEG) Urine Benzodiazepines Screen Neg (NEG) Urine Cocaine Screen Neg (NEG) Urine Cannabinoids Screen Neg (NEG) Urine Ethyl Alcohol Neg (NEG) Bedside Urine HCG, Qualitative Hcg negative (Negative) Test 05/07/20 08:10 Glucose (Fingerstick) 169 mg/dL (70-99) Laboratory Tests Test 05/07/20 01:14 05/07/20 01:25 05/07/20 02:20 05/07/20 02:27 Glucose (Fingerstick) 198 mg/dL (70-99) White Blood Count 8.7 x10^3/uL (4.0-11.0) Red Blood Count 4.56 x10^6/uL (3.50-5.40) Hemoglobin 14.0 g/dL (12.0-15.5) Hematocrit 39.9 % (36.0-47.0) Mean Corpuscular Volume 88 fL (79-100) Mean Corpuscular Hemoglobin 31 pg (25-35) Mean Corpuscular Hemoglobin Concent 35 g/dL (31-37) Red Cell Distribution Width 13.1 % (11.5-14.5) Platelet Count 361 x10^3/uL (140-400) Neutrophils (%) (Auto) 54 % (31-73) Lymphocytes (%) (Auto) 36 % (24-48) Monocytes (%) (Auto) 8 % (0-9) Eosinophils (%) (Auto) 1 % (0-3) Basophils (%) (Auto) 1 % (0-3) Neutrophils # (Auto) 4.7 x10^3/uL (1.8-7.7) Lymphocytes # (Auto) 3.1 x10^3/uL (1.0-4.8) Monocytes # (Auto) 0.7 x10^3/uL (0.0-1.1) Eosinophils # (Auto) 0.1 x10^3/uL (0.0-0.7) Basophils # (Auto) 0.1 x10^3/uL (0.0-0.2) Sodium Level 137 mmol/L (136-145) Potassium Level 3.6 mmol/L (3.5-5.1) Chloride Level 103 mmol/L (98-107) Carbon Dioxide Level 26 mmol/L (21-32) Anion Gap 8 (6-14) Blood Urea Nitrogen 12 mg/dL (7-20) Creatinine 1.0 mg/dL (0.6-1.0) Estimated GFR (Cockcroft-Gault) 60.0 Glucose Level 208 mg/dL (70-99) Calcium Level 8.5 mg/dL (8.5-10.1) Magnesium Level 2.1 mg/dL (1.8-2.4) Troponin I Quantitative < 0.017 ng/mL (0.000-0.055) Ethyl Alcohol Level < 10 mg/dL (0-10) Urine Collection Type Unknown Urine Color Yellow Urine Clarity Clear Urine pH 5.5 (<5.0-8.0) Urine Specific Kershaw 1.025 (1.000-1.030) Urine Protein Negative mg/dL (NEG-TRACE) Urine Glucose (UA) >=1000 mg/dL (NEG) Urine Ketones (Stick) Negative mg/dL (NEG) Urine Blood Negative (NEG) Urine Nitrite Negative (NEG) Urine Bilirubin Negative (NEG) Urine Urobilinogen Dipstick 1.0 mg/dL (0.2 mg/dL) Urine Leukocyte Esterase Negative (NEG) Urine RBC Occ /HPF (0-2) Urine WBC 1-4 /HPF (0-4) Urine Squamous Epithelial Cells Mod /LPF Urine Bacteria Many /HPF (0-FEW) Urine Mucus Mod /LPF Urine Opiates Screen Neg (NEG) Urine Methadone Screen Neg (NEG) Urine Barbiturates Neg (NEG) Urine Phencyclidine Screen Neg (NEG) Urine Amphetamine/Methamphetamine Neg (NEG) Urine Benzodiazepines Screen Neg (NEG) Urine Cocaine Screen Neg (NEG) Urine Cannabinoids Screen Neg (NEG) Urine Ethyl Alcohol Neg (NEG) Bedside Urine HCG, Qualitative Hcg negative (Negative) Test 05/07/20 08:10 Glucose (Fingerstick) 169 mg/dL (70-99) Images Images CT HEAD WITHOUT CONTRAST History: Reason: right facial droop, LUE drift Comparison: None. Procedure: Axial images are obtained of the head from the skull base through the vertex without IV contrast. Findings: The ventricles and sulci are normal for the patient's age. No mass-effect, midline shift, hemorrhage, extra-axial fluid collection, or obvious acute infarction is identified. Basilar cisterns are patent. Bone windows demonstrate no acute calvarial abnormality. The visualized paranasal sinuses are clear. Mastoid air cells are well aerated. IMPRESSION: No acute intracranial abnormality. Assessment/Plan Assessment/Plan Impression: Transient ischemic attack in the left hemisphere with risk factors of hyperlipidemia and diabetes. She also is a smoker. Her blood pressure is fine. No history of migraine to explain the problem. Recommendations: MRI of the brain Echocardiogram CT angiogram Aspirin Statin, risks discussed. Rehabilitation screening Also see stroke orders Discharge as soon as later today. Lipid panel ordered, but she can get this as an outpatient if discharged Discussed with patient's Discussed with Dr. Huerta Thank you for letting me hope that the patient's care. AMIRA GLYNN MD May 07, 2020 10:43
[2020-05-07] MEDS ORDERED: IPRATRPIUM/ALBUTEROL 0.5/2.5MG 3 ML NEBU. NEB PRN (10:45)
[2020-05-07] MEDS ORDERED: ALBUTEROL SULFATE 2.5 MG/3 ML NEBU. NEB PRN (10:45)
[2020-05-07] MEDS ORDERED: DEXTROSE 50% 25 GM / 50ML DISP.SYRIN. IV PRN (10:45)
[2020-05-07 11:00] VITALS: BP 116/58
[2020-05-07] MEDS ORDERED: ENOXAPARIN 40 MG/0.4 ML SYRINGE. SQ SCH (12:00)
[2020-05-07] MEDS ORDERED: DULoxetine HCL 30 MG CAPSULE.DR PO SCH (12:00)
[2020-05-07] MEDS: INSULIN LISPRO 300 UNITS/3 ML VIAL. SQ SCH ×2 (12:02→17:43)
--- NOTE | 2020-05-07 13:13 | RAD ---
CT ANGIOGRAPHY HEAD AND NECK History:Reason: TIA / Spl. Instructions: OMNI 300 INJ 75 MLS / History: Technique: After bolus of intravenous contrast, volumetric CT data acquisition was acquired of the head and neck. Multiplanar reconstruction images to include MIP and 3-D reconstruction images are submitted. This study was performed with separate time from the initial noncontrast head CT. Exposure: One or more of the following individualized dose reduction techniques were utilized for this examination: 1. Automated exposure control 2. Adjustment of the mA and/or kV according to patient size 3. Use of iterative reconstruction technique. Comparison: Noncontrast head CT May 07, 2020 Any determination of stenosis is based on NASCET criteria. Head CTA: ICA: No stenosis, occlusion or aneurysm. MCA: No stenosis, occlusion or aneurysm. FABIENNE: No stenosis, occlusion or aneurysm. LODGING FACILITIES ATTENDANT: No stenosis, occlusion or aneurysm. Basilar artery: No stenosis, occlusion or aneurysm. Distal vertebral arteries: No stenosis, occlusion or aneurysm. CT angiogram neck: Aortic arch: Conventional arch anatomy. Common carotid arteries: No stenosis, occlusion or dissection. Internal carotid arteries: No stenosis, occlusion or dissection. External carotid arteries: Patent Vertebral arteries: No stenosis, occlusion or dissection. Imaged lung apices are unremarkable. Soft tissues appear normal. Bones: Mild multilevel cervical spondylosis. Impression: 1. No arterial stenosis or occlusion within the head or neck. Electronically signed by: Clifton Damon DO (05/07/2020 1:10 PM) [id number]
[2020-05-07] MEDS ORDERED: IPRATRPIUM/ALBUTEROL 0.5/2.5MG 3 ML NEBU. NEB SCH (14:00)
--- NOTE | 2020-05-07 14:09 | RAD ---
BRAIN W/O CONTRAST History:Reason: right paresis, resolved Technique: Multiplanar, multi sequential MR imaging was performed of the brain without contrast. Comparison: CT May 07, 2020 Findings: Acute left basal ganglia infarct involving the putamen and caudate. No additional infarct. There is mild mass effect on the right lateral ventricle. No intracranial hemorrhage. No hydrocephalus. Imaged orbits are unremarkable. Imaged paranasal sinuses and mastoid air cells are clear. Impression: 1. Acute right basal ganglia infarcts with mild adjacent mass effect. FOR INTERNAL CODING PURPOSES Critical result: Findings discussed with patient's nurse at 05/07/2020 2:05 PM. RESULT CODE: (C) Electronically signed by: Clifton Damon DO (05/07/2020 2:07 PM) [id number]
[2020-05-07 15:00] VITALS: BP 128/67
[2020-05-07] MEDS ORDERED: ASPIRIN ENTERIC COATED 325 MG TABLET.DR. PO ONE (15:15)
--- NOTE | 2020-05-07 15:49 | CARD ---
MR#: [id number] Date of Study: 05/07/2020 Ordering Physician: AMIRA GLYNN, Referring Physician: AMIRA GLYNN, Tech: Bette Neri RDCS APPROVED REPORT EXAM: Two-dimensional and M-mode echocardiogram with Doppler and color Doppler. Other Information Quality : Good INDICATION CVA/TIA Echo Enhancing Agent Agent/Amount Used: Agitated Saline 8mL 2D DIMENSIONS RVDd2.5 (2.9-3.5cm)Left Atrium(2D)2.9 (1.6-4.0cm) IVSd0.9 (0.7-1.1cm)Aortic Root(2D)2.1 (2.0-3.7cm) LVDd3.8 (3.9-5.9cm)LVOT Diameter2.0 (1.8-2.4cm) PWd0.9 (0.7-1.1cm)LVDs2.5 (2.5-4.0cm) FS (%) 35.2 %SV40.6 ml LVEF(%)60.0 (>50%) Aortic Valve AoV Peak Tim.132.5cm/sAoV VTI22.4cm AO Peak GR.7.0mmHgLVOT Peak Tim.118.3cm/s AO Mean GR.4mmHgAVA (VMAX)2.74cm2 PARKER (VTI)2.90cm2 Mitral Valve MV E [place]62.9cm/sMV DECEL [id number] MV A Uznhwaxp69.6cm/sE/A Ratio1.1 Pulmonary Vein S1 Oetofbbw43.3cm/sD2 Obwjfjoe07.8cm/s LEFT VENTRICLE The left ventricle is normal size. There is normal left ventricular wall thickness. The left ventricu lar systolic function is normal and the ejection fraction is within normal range. The Ejection Fracti on is 55-60%. There is normal LV segmental wall motion. The left ventricular diastolic function and f illing is normal for age. RIGHT VENTRICLE The right ventricle is normal size. The right ventricular systolic function is normal. ATRIA The left atrium size is normal. The right atrium size is normal. The interatrial septum is intact wit h no evidence for an atrial septal defect or patent foramen ovale as noted on 2-D or Doppler imaging. Injection of bubbles documented no interatrial shunt. AORTIC VALVE The aortic valve is normal in structure and function. Doppler and Color Flow revealed no significant aortic regurgitation. There is no significant aortic valvular stenosis. MITRAL VALVE The mitral valve is normal in structure and function. There is no evidence of mitral valve prolapse. There is no mitral valve stenosis. Doppler and Color Flow revealed no mitral valve regurgitation note d. TRICUSPID VALVE The tricuspid valve is normal in structure and function. Doppler and Color Flow revealed no tricuspid valve regurgitation noted. There is no tricuspid valve stenosis. PULMONIC VALVE The pulmonic valve is not well visualized. Doppler and Color Flow revealed no pulmonic valvular regur gitation. There is no pulmonic valvular stenosis. GREAT VESSELS The aortic root is normal in size. The ascending aorta is normal in size. The IVC is normal in size a nd collapses >50% with inspiration. PERICARDIAL EFFUSION There is no evidence of significant pericardial effusion. Critical Notification Critical Value: No <Conclusion> The left ventricular systolic function is normal and the ejection fraction is within normal range. Th e Ejection Fraction is 55-60%. There is normal LV segmental wall motion. The interatrial septum is intact with no evidence for an atrial septal defect or patent foramen ovale as noted on 2-D or Doppler imaging. Injection of bubbles documented no interatrial shunt. Signed by : Hardeep Krueger, Electronically Approved : 05/07/2020 15:49:05
--- NOTE | 2020-05-07 16:25 | NUR ---
SW following. Spoke with RN and reviewed chart. Coordinated care with Dr. Ohara. Pt from home, room air, regular diet. Pt currently on IV Dextrose. No anticipated SW needs on discharge.
[2020-05-07] MEDS ORDERED: ASPI325T11 PO (17:49)
[2020-05-07] MEDS ORDERED: ATOR10TA60 PO (17:49)
--- NOTE | 2020-05-07 19:00 | NUR ---
Discharge Note: Patient was discharged home with self care. Patients IV was discontinued without any complications per RN. Patients daughter and mother at the bedside at the time of discharge education. Patients discharge NIH was completed and charted. Patients stroke education was provided by THAIS Srivastava. Patient was advised and educated on the importance of quitting smoking. Patient understood. Patient was given discharge summary/instruction, follow-ups, and educational material. Patients medications were called into patients preferred pharmacy. Patient did not have any further questions or concerns. Patient was taken down to the main entrance via wheelchair with all personal belongings accompanied by DEENA Hines, where her ride was waiting for her to take her home.
--- NOTE | 2020-05-07 20:34 | PDOC3 ---
Discharge Summary Date of Admission: May 07, 2020 Date of Discharge: May 07, 2020 Admitting Diagnosis comment: discharge dx Assessment/Plan Impression: Facial droop, resolved , acute cva Acute right basal ganglia infarcts with mild adjacent mass effect.right leg paresthesia, resolved Slurred speech, RESOLVED Diabetes MORBID OBESITY TOBACCO ABUSE DISORDER plan ADMITTED NEUROLOGY CONSULT NEURO CHECKS Q 4 HRS MRI HEAD reviewed TELE ACCUCHECKS pt/ot/ st DVT PROPHYLAXIS HOME MEDS NEED FOR SMOKING CESSATION, reinforced D/W DR GLYNN d/c planning 30 min HPI Chief Complaint Chief Complaint SEEN IN ER WITH TIA, CVA SYMPTOMS 45-year-old female with PMH diabetes who presents with a chief complaint of facial droop and slurred speech. // 1 hour prior to arrival acute onset right-sided facial droop and slurred speech. she had fallen asleep in recliner woke up and began ambulating to the bathroom. while ambulating she noted some right leg heaviness that made it difficult to walk and cause her to fall to the right. She states her noted some slurred speech and right-sided facial droop as well. speech has improved since symptom onset but she still notes some weakness in her right lower extremity. // Denies any history of stroke. Denies any headache or vomiting. Denies any drinking tonight. Denies chest pain or shortness of breath. Denies syncope. Denies any acute vision or hearing changes. Past Medical History Psych: No pertinent hx Musculoskeletal: Weakness Renal/: No pertinent hx Endocrine: Diabetes Family History Family History: Hypertension Social History Smoke: <1 pack per day ALCOHOL: occassional Drugs: None Current Problem List Problem List Problems Medical Problems: (1) Diabetes Status: Acute (2) Facial droop Status: Acute (3) Slurred speech Status: Acute Current Medications Current Medications Current Medications Aspirin (Aspirin Chewable) 324 mg 1X ONCE PO Last administered on 05/07/20at 02:13; Start 05/07/20 at 02:15; Stop 05/07/20 at 02:16; Status DC Active Scripts Active Reported Xanax (Alprazolam) 0.5 Mg Tablet 1 Tab PO HS Cymbalta (Duloxetine Hcl) 60 Mg Capsule.dr 1 Cap PO DAILY Ozempic (Semaglutide) 0.25 Mg/0.2 Ml Pen.injctr 0.25 Mg SQ WEEKLY Basaglar Kwikpen U-100 (Insulin Glargine,Hum.rec.anlog) 100 Unit/1 Ml Insuln.pen 30 Unit SQ HS BRAIN W/O CONTRAST History:Reason: right paresis, resolved Technique: Multiplanar, multi sequential MR imaging was performed of the brain without contrast. Comparison: CT May 07, 2020 Findings: Acute left basal ganglia infarct involving the putamen and caudate. No additional infarct. There is mild mass effect on the right lateral ventricle. No intracranial hemorrhage. No hydrocephalus. Imaged orbits are unremarkable. Imaged paranasal sinuses and mastoid air cells are clear. Impression: 1. Acute right basal ganglia infarcts with mild adjacent mass effect. FOR INTERNAL CODING PURPOSES Critical result: Findings discussed with patient's nurse at 05/07/2020 2:05 PM. RESULT CODE: (C) Electronically signed by: Nader Mccurdy DO (05/07/2020 2:07 PM) [id number] DICTATED and SIGNED BY: NADER MCCURDY DO DATE: 05/07/20 1407 FINAL DIAGNOSIS Problems Medical Problems: (1) Diabetes Status: Acute (2) Facial droop Status: Acute (3) Slurred speech Status: Acute Brief Hospital Course Ms. Torrez is a 45 old [sex] who presented with [ ] CONDITION AT DISCHARGE: Improved Discharge Medications Current Medications Aspirin (Aspirin Chewable) 324 mg 1X ONCE PO Last administered on 05/07/20at 02:13; Start 05/07/20 at 02:15; Stop 05/07/20 at 02:16; Status DC Acetaminophen (Tylenol) 650 mg PRN Q6HRS PRN PO TEMP > 100.4F; Start 05/07/20 at 09:00; Stop 05/07/20 at 19:38; Status DC Acetaminophen (Tylenol Supp) 650 mg PRN Q4HRS PRN CO TEMP > 100.4F; Start 05/07/20 at 09:00; Stop 05/07/20 at 19:38; Status DC Aspirin (Ecotrin) 325 mg DAILYWBKFT PO ; Start 05/08/20 at 08:00; Stop 05/07/20 at 19:38; Status DC Aspirin (Aspirin Rectal Supp) 300 mg PRN DAILY PRN CO IF UNABLE TO TAKE PO; Start 05/07/20 at 09:00; Stop 05/07/20 at 19:38; Status DC Iohexol (Omnipaque 300 Mg/ml) 75 ml 1X ONCE IV Last administered on 05/07/20at 10:20; Start 05/07/20 at 09:15; Stop 05/07/20 at 09:18; Status DC Sodium Chloride (Normal Saline Flush) 3 ml QSHIFT PRN IV AFTER MEDS AND BLOOD DRAWS; Start 05/07/20 at 10:30; Stop 05/07/20 at 19:38; Status DC Sodium Chloride 1,000 ml @ 100 mls/hr Q10H IV Last administered on 05/07/20at 11:54; Start 05/07/20 at 10:28; Stop 05/07/20 at 19:38; Status DC Acetaminophen (Tylenol) 650 mg PRN Q4HRS PRN PO TEMP OVER 100.4F OR MILD PAIN; Start 05/07/20 at 10:30; Status UNV Al Hydroxide/Mg Hydroxide (Mylanta Plus Xs) 30 ml PRN DAILY PRN PO HEARTBURN / GAS; Start 05/07/20 at 10:30; Stop 05/07/20 at 19:38; Status DC Clonidine HCl (Catapres) 0.1 mg PRN Q6HRS PRN PO SBP>160 OR DBP>90; Start 05/07/20 at 10:30; Stop 05/07/20 at 19:38; Status DC Sodium Monofluorophosphate (Fleet Adult) 133 ml PRN DAILY PRN CO CONSTIPATION; Start 05/07/20 at 10:30; Stop 05/07/20 at 19:39; Status DC Docusate Sodium (Colace) 100 mg PRN BID PRN PO HARD STOOLS; Start 05/07/20 at 10:30; Stop 05/07/20 at 19:39; Status DC Albuterol/ Ipratropium (Duoneb) 3 ml Q4HRS W/A NEB ; Start 05/07/20 at 14:00; Stop 05/07/20 at 10:40; Status DC Guaifenesin (Robitussin) 200 mg PRN Q4HRS PRN PO COUGH; Start 05/07/20 at 10:30; Stop 05/07/20 at 19:39; Status DC Lorazepam (Ativan) 0.5 mg PRN Q4HRS PRN PO ANXIETY / AGITATION; Start 05/07/20 at 10:30; Stop 05/07/20 at 19:39; Status DC Enoxaparin Sodium (Lovenox 40mg Syringe) 40 mg Q24H SQ Last administered on 05/07/20at 11:54; Start 05/07/20 at 12:00; Stop 05/07/20 at 19:39; Status DC Alprazolam (Xanax) 0.5 mg HS PO ; Start 05/07/20 at 21:00; Stop 05/07/20 at 19:39; Status DC Duloxetine HCl (Cymbalta) 30 mg DAILY PO Last administered on 05/07/20at 11:54; Start 05/07/20 at 12:00; Stop 05/07/20 at 19:39; Status DC Insulin Glargine (Lantus Syringe) 30 unit QHS SQ ; Start 05/07/20 at 21:00; Stop 05/07/20 at 19:39; Status DC Non-Formulary Medication (Semaglutide (Ozempic)) 0.25 mg WEEKLY SQ ; Start 05/14/20 at 09:00; Status UNV Insulin Human Lispro (HumaLOG) 0-5 UNITS TIDWMEALS SQ Last administered on 05/07/20at 17:43; Start 05/07/20 at 12:00; Stop 05/07/20 at 19:39; Status DC Dextrose (Dextrose 50%-Water Syringe) 12.5 gm PRN Q15MIN PRN IV SEE COMMENTS; Start 05/07/20 at 10:45; Stop 05/07/20 at 19:39; Status DC Albuterol/ Ipratropium (Duoneb) 3 ml PRN Q4HRS PRN NEB WHEEZING; Start 05/07/20 at 10:45; Status UNV Atorvastatin Calcium (Lipitor) 10 mg QHS PO ; Start 05/07/20 at 21:00; Stop 05/07/20 at 19:39; Status DC Albuterol Sulfate (Ventolin Neb Soln) 2.5 mg PRN Q4HRS PRN NEB SHORTNESS OF BREATH; Start 05/07/20 at 10:45; Stop 05/07/20 at 19:39; Status DC Aspirin (Ecotrin) 325 mg 1X ONCE PO Last administered on 05/07/20at 15:35; Start 05/07/20 at 15:15; Stop 05/07/20 at 15:21; Status DC Active Scripts Active Reported Atorvastatin Calcium 10 Mg Tablet 10 Mg PO HS Aspirin Ec (Aspirin) 325 Mg Tablet.dr 1 Tab PO DAILY Xanax (Alprazolam) 0.5 Mg Tablet 1 Tab PO HS Cymbalta (Duloxetine Hcl) 60 Mg Capsule.dr 1 Cap PO DAILY Ozempic (Semaglutide) 0.25 Mg/0.2 Ml Pen.injctr 0.25 Mg SQ WEEKLY Basaglar Kwikpen U-100 (Insulin Glargine,Hum.rec.anlog) 100 Unit/1 Ml Insuln.pen 30 Unit SQ HS Vital Signs Vital Signs Date Time Temp Pulse Resp B/P (MAP) Pulse Ox O2 Delivery O2 Flow Rate FiO2 05/07/20 15:00 98.3 72 20 128/67 (87) 98 Room Air 98.3 Labs Laboratory Tests Test 05/07/20 01:14 05/07/20 01:25 05/07/20 02:20 05/07/20 02:27 Glucose (Fingerstick) 198 mg/dL (70-99) White Blood Count 8.7 x10^3/uL (4.0-11.0) Red Blood Count 4.56 x10^6/uL (3.50-5.40) Hemoglobin 14.0 g/dL (12.0-15.5) Hematocrit 39.9 % (36.0-47.0) Mean Corpuscular Volume 88 fL (79-100) Mean Corpuscular Hemoglobin 31 pg (25-35) Mean Corpuscular Hemoglobin Concent 35 g/dL (31-37) Red Cell Distribution Width 13.1 % (11.5-14.5) Platelet Count 361 x10^3/uL (140-400) Neutrophils (%) (Auto) 54 % (31-73) Lymphocytes (%) (Auto) 36 % (24-48) Monocytes (%) (Auto) 8 % (0-9) Eosinophils (%) (Auto) 1 % (0-3) Basophils (%) (Auto) 1 % (0-3) Neutrophils # (Auto) 4.7 x10^3/uL (1.8-7.7) Lymphocytes # (Auto) 3.1 x10^3/uL (1.0-4.8) Monocytes # (Auto) 0.7 x10^3/uL (0.0-1.1) Eosinophils # (Auto) 0.1 x10^3/uL (0.0-0.7) Basophils # (Auto) 0.1 x10^3/uL (0.0-0.2) Sodium Level 137 mmol/L (136-145) Potassium Level 3.6 mmol/L (3.5-5.1) Chloride Level 103 mmol/L (98-107) Carbon Dioxide Level 26 mmol/L (21-32) Anion Gap 8 (6-14) Blood Urea Nitrogen 12 mg/dL (7-20) Creatinine 1.0 mg/dL (0.6-1.0) Estimated GFR (Cockcroft-Gault) 60.0 Glucose Level 208 mg/dL (70-99) Calcium Level 8.5 mg/dL (8.5-10.1) Magnesium Level 2.1 mg/dL (1.8-2.4) Troponin I Quantitative < 0.017 ng/mL (0.000-0.055) Ethyl Alcohol Level < 10 mg/dL (0-10) Urine Collection Type Unknown Urine Color Yellow Urine Clarity Clear Urine pH 5.5 (<5.0-8.0) Urine Specific [place] 1.025 (1.000-1.030) Urine Protein Negative mg/dL (NEG-TRACE) Urine Glucose (UA) >=1000 mg/dL (NEG) Urine Ketones (Stick) Negative mg/dL (NEG) Urine Blood Negative (NEG) Urine Nitrite Negative (NEG) Urine Bilirubin Negative (NEG) Urine Urobilinogen Dipstick 1.0 mg/dL (0.2 mg/dL) Urine Leukocyte Esterase Negative (NEG) Urine RBC Occ /HPF (0-2) Urine WBC 1-4 /HPF (0-4) Urine Squamous Epithelial Cells Mod /LPF Urine Bacteria Many /HPF (0-FEW) Urine Mucus Mod /LPF Urine Opiates Screen Neg (NEG) Urine Methadone Screen Neg (NEG) Urine Barbiturates Neg (NEG) Urine Phencyclidine Screen Neg (NEG) Urine Amphetamine/Methamphetamine Neg (NEG) Urine Benzodiazepines Screen Neg (NEG) Urine Cocaine Screen Neg (NEG) Urine Cannabinoids Screen Neg (NEG) Urine Ethyl Alcohol Neg (NEG) Bedside Urine HCG, Qualitative Hcg negative (Negative) Test 05/07/20 08:10 05/07/20 11:43 05/07/20 16:52 Glucose (Fingerstick) 169 mg/dL (70-99) 232 mg/dL (70-99) 172 mg/dL (70-99) Laboratory Tests Test 05/07/20 01:14 05/07/20 01:25 05/07/20 02:20 05/07/20 02:27 Glucose (Fingerstick) 198 mg/dL (70-99) White Blood Count 8.7 x10^3/uL (4.0-11.0) Red Blood Count 4.56 x10^6/uL (3.50-5.40) Hemoglobin 14.0 g/dL (12.0-15.5) Hematocrit 39.9 % (36.0-47.0) Mean Corpuscular Volume 88 fL (79-100) Mean Corpuscular Hemoglobin 31 pg (25-35) Mean Corpuscular Hemoglobin Concent 35 g/dL (31-37) Red Cell Distribution Width 13.1 % (11.5-14.5) Platelet Count 361 x10^3/uL (140-400) Neutrophils (%) (Auto) 54 % (31-73) Lymphocytes (%) (Auto) 36 % (24-48) Monocytes (%) (Auto) 8 % (0-9) Eosinophils (%) (Auto) 1 % (0-3) Basophils (%) (Auto) 1 % (0-3) Neutrophils # (Auto) 4.7 x10^3/uL (1.8-7.7) Lymphocytes # (Auto) 3.1 x10^3/uL (1.0-4.8) Monocytes # (Auto) 0.7 x10^3/uL (0.0-1.1) Eosinophils # (Auto) 0.1 x10^3/uL (0.0-0.7) Basophils # (Auto) 0.1 x10^3/uL (0.0-0.2) Sodium Level 137 mmol/L (136-145) Potassium Level 3.6 mmol/L (3.5-5.1) Chloride Level 103 mmol/L (98-107) Carbon Dioxide Level 26 mmol/L (21-32) Anion Gap 8 (6-14) Blood Urea Nitrogen 12 mg/dL (7-20) Creatinine 1.0 mg/dL (0.6-1.0) Estimated GFR (Cockcroft-Gault) 60.0 Glucose Level 208 mg/dL (70-99) Calcium Level 8.5 mg/dL (8.5-10.1) Magnesium Level 2.1 mg/dL (1.8-2.4) Troponin I Quantitative < 0.017 ng/mL (0.000-0.055) Ethyl Alcohol Level < 10 mg/dL (0-10) Urine Collection Type Unknown Urine Color Yellow Urine Clarity Clear Urine pH 5.5 (<5.0-8.0) Urine Specific [place] 1.025 (1.000-1.030) Urine Protein Negative mg/dL (NEG-TRACE) Urine Glucose (UA) >=1000 mg/dL (NEG) Urine Ketones (Stick) Negative mg/dL (NEG) Urine Blood Negative (NEG) Urine Nitrite Negative (NEG) Urine Bilirubin Negative (NEG) Urine Urobilinogen Dipstick 1.0 mg/dL (0.2 mg/dL) Urine Leukocyte Esterase Negative (NEG) Urine RBC Occ /HPF (0-2) Urine WBC 1-4 /HPF (0-4) Urine Squamous Epithelial Cells Mod /LPF Urine Bacteria Many /HPF (0-FEW) Urine Mucus Mod /LPF Urine Opiates Screen Neg (NEG) Urine Methadone Screen Neg (NEG) Urine Barbiturates Neg (NEG) Urine Phencyclidine Screen Neg (NEG) Urine Amphetamine/Methamphetamine Neg (NEG) Urine Benzodiazepines Screen Neg (NEG) Urine Cocaine Screen Neg (NEG) Urine Cannabinoids Screen Neg (NEG) Urine Ethyl Alcohol Neg (NEG) Bedside Urine HCG, Qualitative Hcg negative (Negative) Test 05/07/20 08:10 05/07/20 11:43 05/07/20 16:52 Glucose (Fingerstick) 169 mg/dL (70-99) 232 mg/dL (70-99) 172 mg/dL (70-99) Allergies Allergies Coded Allergies Type Severity Reaction Last Updated Verified Penicillins Allergy Intermediate 10/24/14 Yes Disposition/Orders: D/C to Home Justicifation of Admission Dx: Justifications for Admission: Justification of Admission Dx: Yes Stroke - Ischemic: Stroke-Ischemic JOE FRENCH MD May 07, 2020 20:34
[2020-05-07] MEDS ORDERED: INSULIN GLARGINE SYRINGE. SQ SCH (21:00)
[2020-05-07] MEDS ORDERED: ALPRAZolam 0.5 MG TABLET PO SCH (21:00)
[2020-05-07] MEDS ORDERED: ATORVASTATIN CALCIUM 10 MG TABLET. PO SCH (21:00)
[2020-05-08] MEDS ORDERED: ASPIRIN ENTERIC COATED 325 MG TABLET.DR. PO SCH (08:00)
[2020-05-14] MEDS ORDERED: NON FORMULARY ITEM (Semaglutide (Ozempic) 0.25 MG) SQ SCH (09:00)
== END 2020-05-07 19:00 | disposition home or self-care (01) | DRG 66 ==
LOC: ER 01:08 → 5 NORTH 02:20
PROVIDERS: ADMIT Internal Medicine; ATTEND Internal Medicine
DX: I63.9 Cerebral infarction, unspecified (principal); E11.9 Type 2 diabetes mellitus without complications; E66.01 Morbid (severe) obesity due to excess calories; F17.210 Nicotine dependence, cigarettes, uncomplicated; G25.81 Restless legs syndrome; R29.810 Facial weakness; F32.9 Major depressive disorder, single episode, unspecified; F41.9 Anxiety disorder, unspecified; R47.1 Dysarthria and anarthria; R47.81 Slurred speech; R29.701 NIHSS score 1; Z82.49 Family history of ischemic heart disease and other diseases of the circulatory system; Z83.3 Family history of diabetes mellitus; Z98.51 Tubal ligation status; Z68.33 Body mass index [BMI] 33.0-33.9, adult; Z88.0 Allergy status to penicillin
CPT/HCPCS: 36415; 70450; 70496; 70498; 70551; 71045; 80048; 80307; 81001; 81025; 82962; 83735; 84484; 85025; 86850; 86900; 86901; 87086; 93005; 93306; 99285; G0480; J1650; J7030; Q9967; 92610-GN; G0378